=== PATIENT | male | born 1980 | race Caucasian/White ===

== ENCOUNTER 2016-07-17 08:49 | Emergency (ER) | payer OTHER ==
[~2016-07-17] VITALS: Ht 170.2 cm; Wt 79.4 kg
[2016-07-17 09:12] VITALS: BP 142/77
--- NOTE | 2016-07-17 09:23 | ED UPPER/LOWER EXTREMITY COMPL ---
History of Present Illness General Chief Complaint: Upper Extremity Injury Stated Complaint: LEFT ARM PAIN Source: patient Exam Limitations: no limitations Vital Signs & Intake/Output Vital Signs & Intake/Output Vital Signs Date Time Temp Pulse Resp B/P Pulse O2 O2 Flow FiO2 Ox Delivery Rate 07/17 0912 98.2 82 20 142/77 97 Room Air Allergies Coded Allergies: No Known Allergies (07/17/16) Reconcile Medications Amlodipine Besylate 5 MG TABLET 1 TAB PO DAILY HEART (Reported) Lansoprazole 15 MG CAPSULE.DR 1 CAP PO DAILY ACID REFLUX (Reported) Lisinopril 5 MG TABLET 1 TAB PO DAILY HEART (Reported) Triage Note: TRIAGE: PT TO ER WITH CO-WORKER C/C PAIN TO L ARM FROM ELBOW TO FOREARM S/P INJURY AT WORK. 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 HAS BEEN APPLYING ICE SINCE INJURY. REFUSES OFFERED PAIN MEDS AT TRIAGE. Triage Nurses Notes Reviewed? yes Onset: Abrupt Duration: constant Timing: single episode today HPI: Patient is a 35-year-old male who presents emergency and that while at work today patient was carrying in his arms approximately 150 pound object when he noted while sitting down acute onset of a popping sensation in 7/10 localized left elbow pain. Patient denies any wrist pain or shoulder pain. Patient states that elbow flexion makes worse. No medications given prior to arrival. Patient is right arm dominant. (SONIA VITAL) Past History Travel History Traveled to [place] past 21 day No Medical History Any Pertinent Medical History? 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 No (SONIA VITAL) Review of Systems Review of Systems Constitutional: Reports: no symptoms. EENTM: Reports: no symptoms. Respiratory: Reports: no symptoms. Cardiovascular: Reports: no symptoms. Gastrointestinal/Abdominal: Reports: no symptoms. Genitourinary: Reports: no symptoms. Musculoskeletal: Reports: see HPI, joint pain. Skin: Reports: no symptoms. Neurological/Psychological: Reports: no symptoms. Hematologic/Endocrine: Reports: no symptoms. Immunological: Reports: no symptoms. All Other Systems: Reviewed and Negative (SONIA VITAL) Physical Exam Physical Exam General Appearance: no apparent distress, alert Head: atraumatic Eyes: Bilateral: normal appearance. Ears, Nose, Throat: hearing grossly normal Neck: normal inspection Cardiovascular/Respiratory: no respiratory distress Peripheral Pulses: 2+ radial (R), 2+ radial (L) Shoulder Left: normal range of motion, normal inspection Elbow Left: normal range of motion, normal inspection Hand Left: normal inspection, normal range of motion Neurologic/Tendon: normal sensation, normal motor functions, normal tendon functions, responds to pain, no evidence tendon injury, no pulse deficit Skin: intact, normal color, warm/dry Comments: LEFT ELBOW- NORMAL INSPECTION FULL AROM WITH FLEXION/EXTENSION NEGATIVE HOOK TEST BICEP TENDON INTACT 5/5 RROM WITH PAIN WITH ELBOW FLEXION (SONIA VITAL) Progress Differential Diagnosis: arterial insufficiency, compartment syndrome, contusion, dislocation, DVT, fracture, gout, septic arthritis, sprain, tendon injury, BICEP STRAIN/RUPTURE Plan of Care: Orders Procedure Date/time Status Durable Medical Equipment 07/17 1025 Active No concerns at this time of bicipital complete tendon rupture X-rays are unremarkable for osseous injury. Patient was placed and left shoulder immobilizer pre-and post-neurovascular was intact. Patient will be treated for concerns of brachial radialis AND/or biceps tendon strain He was strongly advised to follow up with orthopedic doctor. (OBEY YOUNG,SONIA) Diagnostic Imaging: Viewed by Me: Radiology Read. Radiology Impression: no acute abnormality, no fracture Comments: PATIENT: LIZ HERNANDEZ PRESENT AGE: 35 PATIENT ACCOUNT NO: [id number] : 80 LOCATION: [facility] ORDERING PHYSICIAN: SONIA YOUNG SERVICE DATE: 07/17/16 EXAM TYPE: RAD - XRY-ELBOW 3 OR MORE VIEWS, L EXAMINATION: XR ELBOW, LEFT CLINICAL INFORMATION: Pain after heavy lifting. COMPARISON: None TECHNIQUE: AP, lateral, and oblique views of the left elbow. FINDINGS: Bone mineral density is maintained without evidence of fracture or dislocation. No focal osseous lesions are seen. Joint space is maintained without productive or erosive changes. No joint effusion is seen. IMPRESSION: Unremarkable exam. (SONIA VITAL) Departure Departure Disposition: HOME OR SELF CARE Condition: Stable Clinical Impression Primary Impression: Strain of elbow, left Referrals: TEE RAHMAN,ASTER ROCHE MD,VIKAS Olsen (PCP/Family) Additional Instructions: As discussed begin using the shoulder immobilizer for pain and support. Begin icing the area directly 20 minutes every 2 hours. Begin [id number] ibuprofen 3 tablets of 200 mg every 8 hours for pain and inflammation. If no better on Sunday follow up and establish orthopedic Dr. Hopkins for further evaluation treatment. 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 I have also reviewed all the pertinent lab results and diagnostic results. I agree with the findings and the plan of care as documented in the PA's/LACQUER DIPPING MACHINE OPERATOR's documentation. [X] I have reviewed the ED Record and agree with the PA's/LACQUER DIPPING MACHINE OPERATOR's documentation. [] Additions or exceptions (if any) to the PAs/LACQUER DIPPING MACHINE OPERATOR's note and plan are summarized below: [] (JESS RAHMAN,GALO Molina)
[2016-07-17] MEDS ORDERED: LISINOPRIL5 M1 PO (09:34)
[2016-07-17] MEDS ORDERED: AMLODIPINE BESYL5 M1 PO (09:34)
[2016-07-17] MEDS ORDERED: LANSOPRAZOLE15 M1 PO (09:34)
--- NOTE | 2016-07-17 10:14 | RADIOLOGY REPORT ---
EXAMINATION: XR ELBOW, LEFT CLINICAL INFORMATION: Pain after heavy lifting. COMPARISON: None TECHNIQUE: AP, lateral, and oblique views of the left elbow. FINDINGS: Bone mineral density is maintained without evidence of fracture or dislocation. No focal osseous lesions are seen. Joint space is maintained without productive or erosive changes. No joint effusion is seen. IMPRESSION: Unremarkable exam.
== END 2016-07-17 10:37 ==
LOC: ERH 08:49
DX: S46.812A Strain of other muscles, fascia and tendons at shoulder and upper arm level, left arm, initial encounter (principal); X58.XXXA Exposure to other specified factors, initial encounter; Y92.9 Unspecified place or not applicable
CPT/HCPCS: 73080-LT

== ENCOUNTER 2016-09-18 10:03 | Emergency (ER) | payer OTHER ==
[~2016-09-18] VITALS: Ht 170.2 cm; Wt 80.7 kg
[~2016-09-18 10:03] MED LIST: AMLODIPINE BESYL5 M1 PO; LANSOPRAZOLE15 M1 PO; LISINOPRIL5 M1 PO
--- NOTE | 2016-09-18 11:04 | ED GENERAL ADULT ---
History of Present Illness General Chief Complaint: Chest Pain Stated Complaint: SOB; CP Source: patient Exam Limitations: no limitations Vital Signs & Intake/Output Vital Signs & Intake/Output Vital Signs Date Time Temp Pulse Resp B/P B/P Pulse O2 O2 Flow FiO2 Mean Ox Delivery Rate 09/18 1248 98.6 79 18 132/86 98 Room Air 09/18 1202 97.2 75 16 120/78 97 Room Air 09/18 1059 98 Room Air 09/18 1013 97.6 99 20 130/85 99 Room Air Allergies Coded Allergies: No Known Allergies (07/17/16) Reconcile Medications Amlodipine Besylate 5 MG TABLET 1 TAB PO QPM HEART (Reported) Lansoprazole 15 MG CAPSULE.DR 1 CAP PO DAILY ACID REFLUX (Reported) Lisinopril 5 MG TABLET 1 TAB PO QPM HEART (Reported) Triage Note: PT C/O LEFT SIDED CP X 1 HOUR. PT ALSO STATES SOB.STATES PAIN RADIATES INTO LEFT SIDE OF NECK. STATES PAIN IS DULL IN NATURE Triage Nurses Notes Reviewed? yes HPI: 35-year-old male with a history of hypertension and GERD presenting with episodes of dull nonradiating left-sided chest pain times many years. Pain is usually alleviated by ibuprofen, has no worsening factors. Episodes occur infrequently, usually 2-3 times a year. Unable to specify usual duration, current episode has been occurring for the past 2 hours. Reports that he occasionally gets left-sided neck pain and he does not feel is connected to his intermittent episodes of chest pain as sometimes the neck pain will occur in isolation, neck pain is also alleviated by ibuprofen. No current neck pain. Denies diaphoresis, nausea, vomiting, lightheadedness, dizziness. Episodes have never been associated with shortness of breath in the past, but reports feeling slightly short of breath with today's episode. Father recently in his 60s from [place] secondary to aortic dissection. Had a normal stress test 13 years ago. Denies cigarette smoking, admits to social alcohol use. (JESUS HILARIO PA-C) Past History Travel History Traveled to [place] past 21 day No Medical History Any Pertinent Medical History? 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 No (YANELIS QUACH,JESSU) Review of Systems Review of Systems Constitutional: Denies: diaphoresis, fever, malaise, weakness. Respiratory: Reports: short of breath. Denies: cough, wheezing. Cardiovascular: Reports: chest pain. Denies: palpitations. GI: Denies: abdominal pain, diarrhea, nausea, vomiting. Musculoskeletal: Denies: joint pain, muscle pain. Neurological/Psychological: Denies: headache, numbness, paresthesia, tingling, tremors, weakness, other ( dizziness/light headedness). (YANELIS QUACH,JESUS) Physical Exam Physical Exam General Appearance: well developed/nourished, no apparent distress, alert, awake Head: atraumatic Respiratory: normal breath sounds, no respiratory distress, left CW +TTP Cardiovascular: regular rate/rhythm Extremities: no edema Neurologic/Psych: alert Core Measures ACS in differential dx? No CVA/TIA Diagnosis: No Severe Sepsis Present: No Septic Shock Present: No (YANELIS QUACH,JESUS) Progress Differential Diagnoses I considered the following diagnoses in my evaluation of the patient: [[place] versus angina versus pneumonia versus pleural effusion versus pleurisy versus PE versus MSK strain versus GERD] Plan of Care: Orders Procedure Date/time Status Add-on Test (ER Only) 09/18 1106 Active PHOSPHORUS 09/18 1043 Complete MAGNESIUM 09/18 1043 Complete TROPONIN LEVEL 09/18 1038 Complete COMPREHENSIVE METABOLIC PANEL 09/18 1038 Complete CBC WITHOUT DIFFERENTIAL 09/18 1038 Complete EKG 09/18 1004 Active Laboratory Tests 09/18/16 1043: Anion Gap 13, Estimated GFR > 60, BUN/Creatinine Ratio 18.8, Glucose 97, Calcium 9.4, Phosphorus 2.9, Magnesium 1.8, Total Bilirubin 0.6, AST 27, ALT 44, Alkaline Phosphatase 56, Troponin I < 0.01, Total Protein 7.4, Albumin 4.5, Globulin 2.9, Albumin/Globulin Ratio 1.6, CBC w Diff NO MAN DIFF REQ, RBC 5.22, MCV 83.1, MCH 28.4, RDW 13.1, MPV 8.4, Gran % 72.1, Lymphocytes % 18.9 L, Monocytes % 5.2, Eosinophils % 3.5, Basophils % 0.3, Absolute Granulocytes 4.8, Absolute Lymphocytes 1.3, Absolute Monocytes 0.4, Absolute Eosinophils 0.2, Absolute Basophils 0, PUBS MCHC 34.1 EKG shows sinus rhythm with no ST or T-wave abnormalities. Troponin was negative, all other labs unremarkable. Chest x-ray unremarkable. Patient likely with MSK strain given chest wall tenderness and improvement after ibuprofen. (JESUS HILARIO PA-C) Initial ED EKG: no ST T wave changes, sinus tach to 105 (JESUS HILARIO PA-C) Departure Departure Disposition: HOME OR SELF CARE Condition: Stable Clinical Impression Primary Impression: Chest pain Referrals: KALEY RAHMAN,VIKAS Olsen (PCP/Family) Additional Instructions: Use ibuprofen as needed for pain. Follow-up with your financial sales advisor for repeat stress testing and further evaluation. Return to the ED for any new or worsening symptoms. Departure Forms: Customer Survey General Discharge Information (JESUS HILARIO PA-C) PA/HEATER HELPER Co-Sign Statement Statement: ED Attending supervision documentation- [] I saw and evaluated the patient. I have also reviewed all the pertinent lab results and diagnostic results. I agree with the findings and the plan of care as documented in the PA's/HEATER HELPER's documentation. [x] I have reviewed the ED Record and agree with the PA's/HEATER HELPER's documentation. [] Additions or exceptions (if any) to the PAs/HEATER HELPER's note and plan are summarized below: [] (JASPER RAHMAN,SAM) Critical Care Note Critical Care Note Critical Care Time: non-applicable (JESUS HILARIO PA-C)
[2016-09-18 11:07] LABS: ABSOLUTE BASOPHIL COUNT 0 /CUMM (0.0-0.2); ABSOLUTE EOSINOPHIL COUNT 0.2 /CUMM (0.0-0.7); ABSOLUTE GRANULOCYTE CT 4.8 /CUMM (1.4-6.5); ABSOLUTE LYMPH COUNT 1.3 /CUMM (1.2-3.4); ABSOLUTE MONOCYTE COUNT 0.4 /CUMM (0.10-0.60); BASOPHIL % 0.3 % (0.0-2.0); EOSINOPHIL % 3.5 % (0-5); GRANULOCYTE % 72.1 % (42.2-75.2); HEMATOCRIT 43.3 % (42-52); MEAN CORPUSCULAR HGB 28.4 PG (27.0-31.0); MEAN CORPUSCULAR HGB CONC 34.1 G/DL (33.0-37.0); MEAN CORPUSCULAR VOLUME 83.1 FL (80.0-94.0); MEAN PLATELET VOLUME 8.4 FL (7.4-10.4); PLATELET COUNT 297 /CUMM (130-400); RBC DISTRIBUTION WIDTH 13.1 % (11.5-14.5); RED BLOOD CELL CT 5.22 /CUMM (4.70-6.10); WHITE BLOOD CELL COUNT 6.7 /CUMM (4.8-10.8)
--- NOTE | 2016-09-18 12:28 | RADIOLOGY REPORT ---
EXAMINATION: XR CHEST CLINICAL INFORMATION: Left-sided chest pain. COMPARISON: None TECHNIQUE: 2 views of the chest were obtained. FINDINGS: Lungs are well expanded and clear. No pulmonary consolidation, pneumothorax or pleural effusion. Cardiac silhouette is normal in size. The mediastinal and hilar contours are normal. There is mild dextrocurvature of the thoracic spine. The visualized ribs are normal. IMPRESSION: Lungs are normal. No evidence of cardiopulmonary disease.
[2016-09-18 12:48] VITALS: BP 132/86
== END 2016-09-18 12:49 ==
LOC: ERH 10:03
PROVIDERS: Emergency Medicine
DX: R07.9 Chest pain, unspecified (principal)
CPT/HCPCS: 93005; 93010